=== PATIENT | female | born 1975 | race African-American/Black ===

== ENCOUNTER 2018-10-22 17:40 | Emergency (ER) | payer SELFPAY ==
[~2018-10-22] VITALS: Ht 170.2 cm; Wt 56.7 kg
[2018-10-22 18:12] VITALS: BP 146/79
[2018-10-22] MEDS ORDERED: IBUPROFEN 600 MG TABLET PO ONE ×2 (18:30→18:36)
== END 2018-10-22 20:08 | disposition home or self-care (01) ==
LOC: ER 17:42
DX: S20.211A Contusion of right front wall of thorax, initial encounter (principal); W01.0XXA Fall on same level from slipping, tripping and stumbling without subsequent striking against object, initial encounter; Y93.89 Activity, other specified; Y92.89 Other specified places as the place of occurrence of the external cause; Y99.8 Other external cause status
CPT/HCPCS: 71100-TC; 84703-TC